=== PATIENT | male | born 1990 | race Caucasian/White ===

== ENCOUNTER 2021-06-07 12:19 | Inpatient (IN) | payer MEDICARE, MEDICAID, SELFPAY ==
[2021-06-07 12:22] VITALS: BP 120/82; PULSE 91; RESP 17; TEMP 36.6; O2SAT 96
[2021-06-07 12:23] VITALS: BMI 32.1
[2021-06-07 14:00] VITALS: BP 104/65; PULSE 86; RESP 17; TEMP 36.8; O2SAT 96
[2021-06-07] MEDS: OLANZapine 5 mg ODT PO (14:18)
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
[2021-06-07 20:55] VITALS: BP 121/86; PULSE 117; RESP 17; TEMP 36.7; O2SAT 97
[2021-06-07] MEDS: hyDROXYzine 25 mg Capsule 50 MG PO (21:17)
[2021-06-07] MEDS: trazodone 50 mg Tablet PO (21:18)
[2021-06-08 06:00] VITALS: BP 121/86; PULSE 117; RESP 17; TEMP 36.7; O2SAT 97
[2021-06-08] MEDS: pantoprazole DR 40 mg Tablet PO (08:42)
[2021-06-08] MEDS: folic acid 1 mg Tablet 0.5 MG PO (08:42)
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
[2021-06-08 14:00] VITALS: BP 125/84; PULSE 82; RESP 18; TEMP 36.8; O2SAT 98
[2021-06-08 22:00] VITALS: BP 115/81; PULSE 92; RESP 17; TEMP 36.6; O2SAT 97
[2021-06-09 06:00] VITALS: BP 92/56; PULSE 80; RESP 17; TEMP 36.6; O2SAT 99
[2021-06-09] MEDS: pantoprazole DR 40 mg Tablet PO (09:16)
[2021-06-09] MEDS: folic acid 1 mg Tablet 0.5 MG PO (09:16)
--- NOTE | 2021-06-09 09:53 | P.PN_ITS ---
Subjective NPU Subjective: Interval history: Patient presents today reporting that he is not willing to go back to his [place] [facility]. Assessment process of change [place] [facility] and identified that is a much lengthier process in this. He denied any clear or problematic issues with discharge but continued to report not wanting to go back. We discussed the likelihood of discharge in the next 48 hours. Mental Status Exam MSE Comments: This is an obese white male in hospital scrubs with limited grooming and eye contact. No abnormal movements except for psychomotor retardation. Cooperative with exam in no acute distress. Speech was limited and decreased rate and volume with limited prosody. Mood described as okay, affect fuse. Thought process linear. Thought content: Patient denied suicidal or homicidal ideation, there are no delusions reported or noted, he denied any auditory or visual hallucinations. Attention concentration were intact and memory appeared unreliable but none were formally tested. He is alert and oriented x3. Insight and judgment are impaired, impulse control is impaired. Intellectual ability is impaired. Vitals/I&O/Wt Last Vital Signs Temp 97.9 F 06/09/21 06:00 Pulse 80 06/09/21 06:00 Resp 17 06/09/21 06:00 BP 92/56 06/09/21 06:00 Pulse Ox 99 06/09/21 06:00 Weight last 48 hrs Weight 104.326 kg A&P Additional A&P Information (1) Intellectual disability: (2) Impulse control disorder in adult: This is a 30-year-old white male with a long history of intellectual disability and impulse control issues who presents from his [place] [facility] with some reports of discontent there was no clear identifiable issues. 1. Continue current medication. 2. Continue every 15 minute checks for safety. 3. Encourage individual, group and milieu therapies. 4. We will obtain collateral information and attempt to make this a quick therapeutic hospitalization. Involuntary Hold Information 96 Hour Hold: 96 Hour Involuntary Admission: No Attestations NPU Medical Necessity Statement*: Inpatient hospitalization is medically necessary and the clinically appropriate intervention at this time. We will monitor medications and make changes as indicated. Likely length of stay 1-3 days. Coding Level of Care Code Acute Purchasing Administrative Assistant for Arun Aguayo
[2021-06-09 14:00] VITALS: BP 99/63; PULSE 79; RESP 16; TEMP 36.3; O2SAT 95
[2021-06-09 21:13] VITALS: BP 112/78; PULSE 82; RESP 15; TEMP 37.2; O2SAT 97
[2021-06-10 06:00] VITALS: BP 111/71; PULSE 62; RESP 14; TEMP 37.2; O2SAT 99
[2021-06-10] MEDS: folic acid 1 mg Tablet 0.5 MG PO (08:23)
[2021-06-10] MEDS: pantoprazole DR 40 mg Tablet PO (08:23)
--- NOTE | 2021-06-10 11:37 | DCPLANNER ---
IMM completed on 06/10/21 @ [facility].
--- NOTE | 2021-06-10 11:51 | PM.NPN ---
Subjective NPU Subjective: Interval history: I met with Dr. Anna in the treatment team to discuss the patient's progress. They say his guardian does want [facility], even though the patient has some complaints about it. The patient has a minimal ability to report on his internal experience. He does say he slept well last night and is feeling good today. He has no aches, pains or other physical complaints. No medication side effects. He does not think he is depressed. Denies suicidal and homicidal ideation. Denies auditory and visual hallucination. Mental Status Exam MSE Comments: This is an obese white male in hospital scrubs with limited grooming and eye contact. No abnormal movements except for psychomotor retardation. Cooperative with exam in no acute distress. Speech was limited and decreased rate and volume with limited prosody. Mood described as doing okay, affect was blunted. Thought process linear. But concrete thought content: Patient denied suicidal or homicidal ideation, there are no delusions reported or noted, he denied any auditory or visual hallucinations. Attention concentration were intact and memory appeared unreliable but none were formally tested. He is alert and oriented x3. Insight and judgment are impaired, impulse control is impaired. Intellectual ability is impaired. Vitals/I&O/Wt Last Vital Signs Temp 98.6 F 06/10/21 22:00 Pulse 75 06/10/21 22:00 Resp 15 06/10/21 22:00 BP 132/90 06/10/21 22:00 Pulse Ox 97 06/10/21 22:00 Weight last 48 hrs Weight 104.326 kg A&P Assessment and plan (1) Impulse control disorder in adult: Status: Acute (2) Intellectual disability: Status: Acute Additional A&P Information This is a 30-year-old white male with a long history of intellectual disability and impulse control issues who [facility] with some reports of discontent there was no clear identifiable issues. 1. Continue current medication. 2. Continue every 15 minute checks for safety. 3. Encourage individual, group and milieu therapies. 4. We will obtain collateral information and attempt to make this a quick therapeutic hospitalization. Involuntary Hold Information 96 Hour Hold: 96 Hour Involuntary Admission: No Attestations NPU Medical Necessity Statement*: Inpatient hospitalization is medically necessary and the clinically appropriate intervention at this time. We will monitor medications and make changes as indicated. Likely length of stay 1-2 days. Coding Level of Care Code Acute Maintenance [place] for g Fwd Diagnoses Impulse control disorder in adult F63.9 Intellectual disability F79
[2021-06-10 14:00] VITALS: BP 121/84; PULSE 92; RESP 20; TEMP 36; O2SAT 96
[2021-06-10 22:00] VITALS: BP 132/90; PULSE 75; RESP 15; TEMP 37; O2SAT 97
[2021-06-11 06:00] VITALS: BP 112/74; PULSE 85; RESP 15; TEMP 36.6; O2SAT 98
[2021-06-11] MEDS: folic acid 1 mg Tablet 0.5 MG PO (07:45)
[2021-06-11] MEDS: pantoprazole DR 40 mg Tablet PO (07:45)
[2021-06-11 11:06] VITALS: BP 112/74; PULSE 85; RESP 15; TEMP 36.6; O2SAT 98
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
[2021-06-11 11:27] VITALS: BP 112/74; PULSE 85; RESP 15; TEMP 36.6; O2SAT 98
== END 2021-06-11 13:51 | disposition home or self-care (01) | DRG 884 ==
PROVIDERS: Admitting Provider Psychiatry & Neurology Psychiatry; Visit Provider Psychiatry & Neurology Child & Adolescent Psychiatry
DX: F79 Unspecified intellectual disabilities (principal); F63.9 Impulse disorder, unspecified; F17.210 Nicotine dependence, cigarettes, uncomplicated; E66.9 Obesity, unspecified; Z68.32 Body mass index [BMI] 32.0-32.9, adult
CPT/HCPCS: 97150; 97165